=== PATIENT | female | born 2005 | race Caucasian/White ===

== ENCOUNTER 2024-03-10 06:05 | Inpatient (IN) ==
[2024-03-10] MEDS ORDERED: REGLAN INJ 10 MG VIAL IVP PRN (06:45)
[2024-03-10] MEDS ORDERED: NUBAIN INJ 20 MG AMP IVP PRN (06:45)
[2024-03-10] MEDS ORDERED: BETADINE SOLN ONE (06:46)
[2024-03-10] MEDS: D5 1/2 NS 1,000 ML 1,000 ML IV SCH (06:50)
--- NOTE | 2024-03-10 07:07 | DR.OB ---
OB QUICK NOTE Assessment/Plan (1) Elective induction of labor planned: Assessment/Plan: L&D 03/10/24 at 7:00am S-No complaint. O-Afebrile,VSS NAE=130 with good LTV, +accel, no decel. CTX=none CVX=2cm/50%/-1/VTX AROM with clear fluid. IUPC and FSE placed. A-IUP at 39 1/7 weeks for induction P-Begin pitocin induction Anticipate
[2024-03-10] MEDS: OXYTOCIN 20 UNIT/1,000 ML-NS 20 UNIT/1,000 ML PLAST..BAG IV PRN (07:15)
[2024-03-10 08:25] LABS: BILIRUBIN,URINE NEGATIVE (NEGATIVE); BLOOD/HEMOGLOBIN,URINE 5+ (NEGATIVE); GLUCOSE, URINE NEGATIVE (NEGATIVE); KETONES,URINE NEGATIVE (NEGATIVE); LEUKOCYTE ESTERASE ,URINE 2+ (NEGATIVE); NITRITES,URINE NEGATIVE (NEGATIVE); PROTEIN,URINE 1+ (NEGATIVE); UROBILINOGEN,URINE NORMAL (NORMAL)
[2024-03-10 08:46] LABS: APPEARANCE,URINE HAZY (CLEAR); BACTERIA,URINE TRACE /HPF (NEGATIVE); COLOR,URINE YELLOW (YELLOW); SQUAMOUS EPITHELIAL CELL,UR FEW /HPF (NEGATIVE)
[2024-03-10] MEDS: LR 1,000 ML IV 1,000 ML IV ONE ×2 (08:54→10:31)
[2024-03-10] MEDS: FENTANYL VIAL INJ 100 mcg ONE (09:23)
[2024-03-10] MEDS: NAROPIN EPIDURAL 0.2% 100 ML ONE (09:23)
[2024-03-10] MEDS: EPHEDRINE SULFATE INJ ONE (10:50)
--- NOTE | 2024-03-10 12:49 | DR.OB ---
OB QUICK NOTE Assessment/Plan (1) Elective induction of labor planned: Assessment/Plan: L&D 03/10/24 at 12:45PM Pitocin=20mu/min. S-No complaint. s/p epidural. O-Afebrile,VSS DXY=512 with good LTV, +accel, no decel. CTX=q 1 1/2 to 2 min. About 45-55mmHg CVX=4-5cm/75%/-1/VTX A-IUP at 39 1/7 weeks for induction P-Cont. pitocin induction Anticipate
[2024-03-10] MEDS: PITOCIN IVP ONE (15:17)
--- NOTE | 2024-03-10 15:36 | DR.OB ---
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 Head delivered over intact perineum. No nuchal cord. Nose and mouth bulb suctioned. Body delivered over intact perineum. Cord clamped x 2 and cut. Infant handed to attendant. Cord sent for gases. Placenta delivered spontaneously / intact / 3 vessel cord. No CVX tear noted. Small second degree tear noted to left of midline, repaired with 0-vicryl in usual fashion. Viable female delivered by , VTX/OA, wt=6'9" and 8/9, stable to NBN. Mother stable to RR. VAD=650iu.
[2024-03-10] MEDS ORDERED: DERMOPLAST PAIN RELIEF SPRAY TOP PRN (15:43)
[2024-03-10] MEDS ORDERED: AMBIEN PO PRN (15:43)
[2024-03-10] MEDS ORDERED: MILK OF MAGNESIA PO PRN (15:43)
[2024-03-10] MEDS ORDERED: MOTRIN TAB 800 MG PO PRN (15:43)
[2024-03-10] MEDS: METHERGINE ONE (16:33)
[2024-03-10] MEDS: OXYTOCIN 20 UNIT/1,000 ML-NS 20 UNIT/1,000 ML PLAST..BAG IV SCH (17:17)
[2024-03-10] MEDS: MOTRIN TAB 800 MG PO PRN (17:48)
[2024-03-10] MEDS: ZOFRAN INJ 4 MG VIAL IVP PRN (17:50)
[2024-03-11] MEDS ORDERED: ADACEL or BOOSTRIX TDaP VACCINE IM ONE (03:00)
[2024-03-11] MEDS: ADACEL or BOOSTRIX TDaP VACCINE IM ONE (03:14)
[2024-03-11 05:34] LABS: HEMATOCRIT 22.5 % (36.0-47.0)
[2024-03-11 05:45] LABS: HEMOGLOBIN 7.7 g/dL (12.0-16.0)
[2024-03-11] MEDS: PRENATAL PLUS PO SCH (08:15)
[2024-03-11 12:14] VITALS: RESP 18
[2024-03-11] MEDS: FERROUS GLUCONATE PO SCH (16:36)
[2024-03-11 17:15] VITALS: BP 99/58; PULSE 93; TEMP 97.7; O2SAT 99
== END 2024-03-11 17:15 | disposition home or self-care (01) | DRG 807 ==
LOC: LD 06:05 → MED/SURG 16:26
PROVIDERS: ADMIT Specialist; ATTEND Specialist
DX: Z3A.39 39 weeks gestation of pregnancy; O70.1 Second degree perineal laceration during delivery; O26.893 Other specified pregnancy related conditions, third trimester; Z37.0 Single live birth